=== PATIENT | female | born 1940 | race Caucasian/White ===

== ENCOUNTER 2022-06-18 14:40 | Emergency (ER) | payer BC, MEDICARE ==
[~2022-06-18] VITALS: Ht 160 cm; Wt 52.6 kg
--- NOTE | 2022-06-18 14:55 | NUR ---
Received pt 81 yrs female came from home s/p fall down today c/o pain on RT WIST DIFORMITY
--- NOTE | 2022-06-18 15:20 | NUR ---
X-RAY DONE AT BED SIDE
[2022-06-18] MEDS ORDERED: LEVO100T9 PO (15:34)
[2022-06-18] MEDS ORDERED: DIAZ2TAB3 PO (15:34)
[2022-06-18] MEDS ORDERED: AMIT10TA6 PO (15:34)
--- NOTE | 2022-06-18 15:45 | NUR ---
RESTING WITH ARM SLING
[2022-06-18] MEDS ORDERED: ETOMIDATE 2 MG/ML VIAL IV ONE (16:00)
[2022-06-18] MEDS ORDERED: ONDANSETRON HCL/PF - ER 4 MG/2 ML VIAL IV ONE (16:30)
[2022-06-18] MEDS ORDERED: CEFAZOLIN 1 GM in IV D5W 50 ML IV ONE (16:30)
[2022-06-18] MEDS ORDERED: MORPHINE SULFATE INJ 2 MG/ML DISP.SYRIN IV ONE (16:30)
[2022-06-18] MEDS ORDERED: ONDANSETRON HCL/PF 4 MG/2 ML VIAL ONE (16:52)
[2022-06-18] MEDS ORDERED: MORPHINE SULFATE INJ 4 MG/ML DISP.SYRIN ONE (16:52)
[2022-06-18] MEDS ORDERED: ETOMIDATE 2 MG/ML VIAL ONE (17:30)
--- NOTE | 2022-06-18 17:42 | NUR ---
MODETE SEDATION DONE PLASE SEE RECORDE
--- NOTE | 2022-06-18 17:45 | NUR ---
RADIOLOGY CALLED FOR L WRIST XRAY S/P REDUCTION
--- NOTE | 2022-06-18 17:53 | NUR ---
PT FULLY AWAKE AND ALERT RESPIRATION SPONT AND EAST WITH SPLENT APPLED BY DR. GARAY
[2022-06-18] MEDS ORDERED: TDAP [DIPH/PERTUSSIS/TET] 0.5 ML VIAL IM ONE ×2 (18:30→19:07)
[2022-06-18] MEDS ORDERED: HYDR-4303 PO (18:35)
[2022-06-18] MEDS ORDERED: DOCU-141 PO (18:35)
--- NOTE | 2022-06-18 18:53 | NUR ---
Rasting and comfortable at this time
--- NOTE | 2022-06-18 19:18 | NUR ---
Patient discharged to home in stable condition. Written and verbal after care instructions given. Patient verbalizes understanding of instruction.
[2022-06-18 19:48] VITALS: BP 155/95
== END 2022-06-18 19:48 | disposition home or self-care (01) ==
LOC: ER 14:44
DX: S52.512A Displaced fracture of left radial styloid process, initial encounter for closed fracture (principal); Z90.89 Acquired absence of other organs; Z88.0 Allergy status to penicillin; Z88.8 Allergy status to other drugs, medicaments and biological substances; Z79.899 Other long term (current) drug therapy; W18.30XA Fall on same level, unspecified, initial encounter; Y93.89 Activity, other specified; Y92.89 Other specified places as the place of occurrence of the external cause; Y99.8 Other external cause status
CPT/HCPCS: 25605; 99285; 90471; 99152; 90715; 73090; 73110 ×2; 96375; 96365; J0690; J2270; J2405; J7060; J7030 ×2; J3490; A6403; G0500

== ENCOUNTER 2022-11-10 12:12 | Emergency (ER) | payer BC ==
[~2022-11-10] VITALS: Ht 157.5 cm; Wt 59.0 kg
[~2022-11-10 12:12] MED LIST: AMIT10TA6 PO; DIAZ2TAB3 PO; DOCU-141 PO; HYDR-4303 PO; LEVO100T9 PO
[2022-11-10 12:34] VITALS: BP 165/102
[2022-11-10] MEDS ORDERED: ACETAMINOPHEN ES 500 MG TABLET ONE (12:49)
[2022-11-10] MEDS ORDERED: IBUPROFEN 600 MG TABLET ONE (12:50)
[2022-11-10] MEDS ORDERED: ACETAMINOPHEN ES 500 MG TABLET PO ONE (13:00)
[2022-11-10] MEDS ORDERED: IBUPROFEN 600 MG TABLET PO ONE (13:00)
--- NOTE | 2022-11-10 13:13 | NUR ---
CURB HOP AT BEDSIDE FOR R WRIST XRAY.
[2022-11-10] MEDS ORDERED: DOCU-141 PO (15:08)
[2022-11-10] MEDS ORDERED: HYDR-4303 PO (15:08)
--- NOTE | 2022-11-10 15:16 | NUR ---
Right arm sling and splint applied by EVE Hernandez. Patient discharged to home in stable condition. Written and verbal after care instructions given. Patient verbalizes understanding of instruction.
== END 2022-11-10 15:18 | disposition home or self-care (01) ==
LOC: ER 12:35
DX: S59.201A Unspecified physeal fracture of lower end of radius, right arm, initial encounter for closed fracture (principal); Z90.49 Acquired absence of other specified parts of digestive tract; Z79.899 Other long term (current) drug therapy; Z88.0 Allergy status to penicillin; Z91.040 Latex allergy status; W18.30XA Fall on same level, unspecified, initial encounter; Y93.89 Activity, other specified; Y92.89 Other specified places as the place of occurrence of the external cause; Y99.8 Other external cause status
CPT/HCPCS: 73110

== ENCOUNTER 2024-02-10 19:26 | Emergency (ER) | payer BC ==
[~2024-02-10] VITALS: Ht 162.6 cm; Wt 56.7 kg
[2024-02-10 19:26] VITALS: BP 125/79; TEMP 98; O2SAT 98
[2024-02-10] MEDS ORDERED: TDAP [DIPH/PERTUSSIS/TET] 0.5 ML VIAL IM ONE (20:07)
[2024-02-10] MEDS: TDAP [DIPH/PERTUSSIS/TET] 0.5 ML VIAL IM ONE (20:15)
== END 2024-02-10 20:22 | disposition home or self-care (01) ==
LOC: ER 19:28
DX: S61.211A Laceration without foreign body of left index finger without damage to nail, initial encounter (principal); M81.0 Age-related osteoporosis without current pathological fracture; Z90.49 Acquired absence of other specified parts of digestive tract; Z88.0 Allergy status to penicillin; Z91.040 Latex allergy status; W26.0XXA Contact with knife, initial encounter; Y93.89 Activity, other specified; Y92.89 Other specified places as the place of occurrence of the external cause; Y99.8 Other external cause status
CPT/HCPCS: 90715

== ENCOUNTER 2024-03-13 09:56 | Emergency (ER) | payer BC ==
[~2024-03-13] VITALS: Ht 157.5 cm; Wt 76.2 kg
[2024-03-13] MEDS ORDERED: ACETAMINOPHEN 325 MG TABLET ONE (10:29)
[2024-03-13] MEDS: ACETAMINOPHEN 325 MG TABLET PO ONE (10:30)
[2024-03-13 15:25] VITALS: BP 131/64; TEMP 98.8; O2SAT 100
== END 2024-03-13 15:25 | disposition home or self-care (01) ==
LOC: ER 10:09
DX: S82.092A Other fracture of left patella, initial encounter for closed fracture (principal); E03.9 Hypothyroidism, unspecified; Z90.49 Acquired absence of other specified parts of digestive tract; R51.9 Headache, unspecified; Z79.899 Other long term (current) drug therapy; Z79.891 Long term (current) use of opiate analgesic; Z88.0 Allergy status to penicillin; Z91.040 Latex allergy status; W17.89XA Other fall from one level to another, initial encounter; Y93.89 Activity, other specified; Y92.89 Other specified places as the place of occurrence of the external cause; Y99.8 Other external cause status
CPT/HCPCS: 70450-TC; 73564-TC; 73590-TC; 73700-TC